=== PATIENT | female | born 1945 | race Caucasian/White ===

== ENCOUNTER 2017-10-03 09:28 | Inpatient (IN) | payer MEDICARE, OTHER ==
[~2017-10-03] VITALS: Ht 160 cm; Wt 52.6 kg
[~2017-10-03 09:28] MED LIST: AMIO200T33 PO; ASPI325T4 PO; ATOR10TA PO; IPRASOL41 NEB; MEGE40SU2 PO; RIVA10TA PO
[2017-10-03 10:51] LABS: Basophils # (auto) 0.1 uL; Basophils % (auto) 0.7 % (0.0-2.0); Eosinophils # (auto) 0.1 uL; Eosinophils % (auto) 0.7 % (0.0-7.0); Hematocrit 35.3 % (36.0-46.0); Hemoglobin 11.4 g/dL (12.2-16.2); Lymphocytes # (auto) 0.6 uL; Lymphocytes % (auto) 6.3 % (10.0-50.0); Mean Corpuscular Hemoglobin 29.5 pg (28.0-32.0); Mean Corpuscular Hgb Conc. 32.3 g/dL (32.0-36.0); Mean Corpuscular Volume 91.3 fL (80.0-100.0); Monocytes % (auto) 10.5 % (0.0-12.0); Neutrophils # (auto) 7.8 uL; Neutrophils % (auto) 81.8 % (37.0-80.0); Nucleated Red Blood Cells % 0.1 %; Platelet Count (auto) 256 10^3/uL (140-450); Red Blood Cells 3.87 10^6/uL (4.0-5.20); Red Cell Distribution Width 15.9 % (11.8-14.3); White Blood Cell 9.5 10^3/uL (4.4-10.8)
[2017-10-03 11:03] LABS: Albumin 3.5 g/dL (3.4-5.0); BUN/Creatinine Ratio 36.4; Calcium 8.7 mg/dL (8.5-10.1); Potassium 3.7 mmol/L (3.5-5.1)
[2017-10-03 11:05] LABS: Bilirubin, Total 0.4 mg/dL (0.2-1.0); Total Protein 6.6 g/dL (6.4-8.2)
[2017-10-03] MEDS ORDERED: PATIENTS OWN MEDICATION (Atorvastatin Calcium (Lipitor) 10 MG) PO SCH (14:00)
[2017-10-03] MEDS ORDERED: LORazepam 0.5 MG TAB PO PRN (14:00)
[2017-10-03] MEDS ORDERED: MORPHINE SULFATE 4 MG/ML SYR/VIAL IV PRN (14:00)
[2017-10-03] MEDS ORDERED: PROMETHAZINE HCL 25 MG/ML 1ML IV PRN (14:00)
[2017-10-03] MEDS ORDERED: HYDROcodone-ACET 5/325MG TAB PO PRN (14:00)
[2017-10-03] MEDS ORDERED: NITROGLYCERIN 0.4 MG SL TAB SL PRN (14:00)
[2017-10-03] MEDS ORDERED: DEXTROSE (50%) 50ML SYRG IV PRN (14:00)
[2017-10-03] MEDS ORDERED: TEMAZEPAM 15 MG CAP PO PRN (14:00)
[2017-10-03] MEDS ORDERED: LACTULOSE 20Gm/30ML SOLN PO PRN (14:00)
[2017-10-03] MEDS ORDERED: ASPI-498 PO (14:12)
[2017-10-03] MEDS ORDERED: PRE5T PO (16:06)
[2017-10-03] MEDS ORDERED: METH2.5T3 PO (16:06)
[2017-10-03] MEDS ORDERED: TEMA30CA PO (16:07)
[2017-10-03] MEDS ORDERED: SENN1TAB14 PO (16:07)
[2017-10-03] MEDS ORDERED: SERT-274 PO (16:07)
[2017-10-03] MEDS: ALBUTEROL SULF 2.5 MG/0.5ML(0.5%) NEB SOLN NEB SCH (16:08)
[2017-10-03] MEDS: IPRATROPIUM BROM 0.5 MG/2.5ML INH SOL NEB SCH (16:08)
[2017-10-03] MEDS: MORPHINE SULFATE 4 MG/ML SYR/VIAL IV PRN ×2 (16:25→21:47)
[2017-10-03 16:43] VITALS: BP 142/83
[2017-10-03 16:52] VITALS: BP 142/83
[2017-10-03] MEDS: InsuLIN REG 1unit/0.01ml Soln (100units/ml) SC SCH ×2 (17:00→21:45)
[2017-10-03] MEDS: SODIUM CHLORIDE 0.9% 1,000 ML IV SCH (17:50)
[2017-10-03] MEDS: ACCU-CHEK COMFORT CURVE STRIP VI SCH ×2 (17:50→21:45)
[2017-10-03] MEDS ORDERED: IPRATROPIUM ALBUTEROL NEB SCH (18:00)
[2017-10-03 20:00] VITALS: BP 106/74
[2017-10-03] MEDS: ATORVASTATIN 20 MG TAB PO SCH (21:44)
[2017-10-03] MEDS: MEGESTROL ACET 400MG/10ML ORAL SUSP PO SCH (21:44)
[2017-10-03 22:00] VITALS: BP 106/74
[2017-10-04] VITALS (7 sets, daily range): BP systolic 93–115; BP diastolic 46–74
[2017-10-04] MEDS: SODIUM CHLORIDE 0.9% 1,000 ML IV SCH (04:41)
[2017-10-04] MEDS: MORPHINE SULFATE 4 MG/ML SYR/VIAL IV PRN ×3 (04:43→16:32)
[2017-10-04] MEDS: IPRATROPIUM BROM 0.5 MG/2.5ML INH SOL NEB SCH ×4 (06:23→19:20)
[2017-10-04] MEDS: ALBUTEROL SULF 2.5 MG/0.5ML(0.5%) NEB SOLN NEB SCH ×4 (06:23→19:20)
[2017-10-04] MEDS: ACCU-CHEK COMFORT CURVE STRIP VI SCH ×4 (06:55→21:12)
[2017-10-04] MEDS: InsuLIN REG 1unit/0.01ml Soln (100units/ml) SC SCH ×4 (06:55→21:18)
[2017-10-04] MEDS: ASPirin 81 mg TAB PO SCH (09:53)
[2017-10-04] MEDS: AMIODARONE HCL 200 MG TAB PO SCH (09:53)
[2017-10-04] MEDS: MEGESTROL ACET 400MG/10ML ORAL SUSP PO SCH ×2 (09:54→21:10)
[2017-10-04] MEDS ORDERED: ENOXAPARIN SOD 40 MG/0.4 ML SYRINGE SC SCH (10:00)
[2017-10-04] MEDS ORDERED: RIVAROXABAN 10 MG TAB PO SCH (10:00)
[2017-10-04] MEDS ORDERED: PATIENTS OWN MEDICATION (Aspirin 1 TAB) PO SCH (10:00)
[2017-10-04] MEDS ORDERED: ASPirin 325 MG TAB PO SCH (10:00)
[2017-10-04] MEDS ORDERED: predniSONE 5 MG TAB PO ONE (11:45)
[2017-10-04] MEDS ORDERED: cefTRIAXone 1GM/10ml IVPUSH 10 ML IV ONE (11:45)
[2017-10-04 12:22] LABS: Urine Bacteria MANY /hpf (None Seen); Urine Blood TRACE /uL (Negative); Urine Mucus FEW (None Seen); Urine Specific Gravity 1.016 (1.001-1.035); Urine WBC 248 /hpf (0 - 5); Urine WBC Clumps PRESENT /hpf (None Seen)
[2017-10-04] MEDS ORDERED: DOCUSATE SOD 100 MG CAP PO PRN (18:00)
[2017-10-04] MEDS: ATORVASTATIN 20 MG TAB PO SCH (21:11)
[2017-10-04] MEDS ORDERED: SODIUM CHLORIDE 0.9% 500 ML IV ONE (23:15)
[2017-10-05] MEDS: IPRATROPIUM BROM 0.5 MG/2.5ML INH SOL NEB SCH ×5 (00:20→23:57)
[2017-10-05] MEDS: ALBUTEROL SULF 2.5 MG/0.5ML(0.5%) NEB SOLN NEB SCH ×5 (00:20→23:57)
[2017-10-05 05:37] VITALS: BP 90/56
[2017-10-05 05:38] LABS: Basophils # (auto) 0.1 uL; Basophils % (auto) 0.6 % (0.0-2.0); Eosinophils # (auto) 0.1 uL; Hematocrit 33.3 % (36.0-46.0); Hemoglobin 10.8 g/dL (12.2-16.2); Lymphocytes # (auto) 0.9 uL; Lymphocytes % (auto) 9.2 % (10.0-50.0); Mean Corpuscular Hemoglobin 29.7 pg (28.0-32.0); Mean Corpuscular Hgb Conc. 32.4 g/dL (32.0-36.0); Mean Corpuscular Volume 91.5 fL (80.0-100.0); Monocytes # (auto) 1.4 uL; Monocytes % (auto) 15.2 % (0.0-12.0); Platelet Count (auto) 230 10^3/uL (140-450); Red Blood Cells 3.64 10^6/uL (4.0-5.20); Red Cell Distribution Width 15.9 % (11.8-14.3); White Blood Cell 9.5 10^3/uL (4.4-10.8)
[2017-10-05 05:57] LABS: INR 1.09 (0.9-1.15); Partial Thromboplastin Time 33.8 sec (22.64-33.71); Prothrombin Time 11.9 sec (9.37-12.3)
[2017-10-05 06:02] LABS: Calcium 8.5 mg/dL (8.5-10.1); Potassium 3.3 mmol/L (3.5-5.1)
[2017-10-05 06:04] LABS: BUN/Creatinine Ratio 39.4
[2017-10-05] MEDS: ACETAMINOPHEN 500 MG TAB PO PRN ×2 (06:31→20:05)
[2017-10-05] MEDS: ACCU-CHEK COMFORT CURVE STRIP VI SCH ×4 (06:31→21:36)
[2017-10-05] MEDS: InsuLIN REG 1unit/0.01ml Soln (100units/ml) SC SCH ×4 (06:31→21:36)
[2017-10-05 08:47] VITALS: BP 87/47
[2017-10-05] MEDS: cefTRIAXone 1GM/10ml IVPUSH 10 ML IV SCH (09:10)
[2017-10-05] MEDS: predniSONE 5 MG TAB PO SCH (09:15)
[2017-10-05] MEDS: AMIODARONE HCL 200 MG TAB PO SCH (09:16)
[2017-10-05] MEDS: ASPirin 81 mg TAB PO SCH (09:16)
[2017-10-05] MEDS: MEGESTROL ACET 400MG/10ML ORAL SUSP PO SCH ×3 (09:16→21:25)
[2017-10-05] MEDS: traMADol HCL 50 MG TAB PO PRN ×3 (10:59→21:26)
[2017-10-05] MEDS ORDERED: SODIUM CHLORIDE 0.9% 500 ML IV ONE (11:45)
[2017-10-05 13:00] VITALS: BP 87/56
[2017-10-05 17:14] VITALS: BP 94/54
[2017-10-05] MEDS: ATORVASTATIN 20 MG TAB PO SCH (21:25)
[2017-10-05 22:00] VITALS: BP 110/59
[2017-10-06 05:00] VITALS: BP 103/57
[2017-10-06] MEDS: traMADol HCL 50 MG TAB PO PRN ×3 (06:15→23:25)
[2017-10-06] MEDS: InsuLIN REG 1unit/0.01ml Soln (100units/ml) SC SCH ×4 (07:00→22:23)
[2017-10-06] MEDS: ACCU-CHEK COMFORT CURVE STRIP VI SCH ×4 (07:22→21:58)
[2017-10-06] MEDS: IPRATROPIUM BROM 0.5 MG/2.5ML INH SOL NEB SCH ×3 (07:31→18:12)
[2017-10-06] MEDS: ALBUTEROL SULF 2.5 MG/0.5ML(0.5%) NEB SOLN NEB SCH ×3 (07:31→18:12)
[2017-10-06 08:00] VITALS: BP 106/62
[2017-10-06] MEDS ORDERED: ADENOSINE 45 MG in GIVE UN-DILUTED 0 ML IV ONE (08:30)
[2017-10-06] MEDS: cefTRIAXone 1GM/10ml IVPUSH 10 ML IV SCH (09:34)
[2017-10-06] MEDS: AMIODARONE HCL 200 MG TAB PO SCH (09:35)
[2017-10-06] MEDS: predniSONE 5 MG TAB PO SCH (09:35)
[2017-10-06] MEDS: MEGESTROL ACET 400MG/10ML ORAL SUSP PO SCH ×2 (09:36→21:58)
[2017-10-06] MEDS: ASPirin 81 mg TAB PO SCH (09:36)
[2017-10-06 12:00] VITALS: BP 100/66
[2017-10-06 20:00] VITALS: BP 121/53
[2017-10-06] MEDS: ATORVASTATIN 20 MG TAB PO SCH (21:58)
[2017-10-06 21:59] VITALS: BP 100/66
[2017-10-06 22:00] VITALS: BP 141/82
[2017-10-07] MEDS: IPRATROPIUM BROM 0.5 MG/2.5ML INH SOL NEB SCH ×3 (00:40→13:12)
[2017-10-07] MEDS: ALBUTEROL SULF 2.5 MG/0.5ML(0.5%) NEB SOLN NEB SCH ×3 (00:40→13:12)
[2017-10-07] MEDS: traMADol HCL 50 MG TAB PO PRN (04:51)
[2017-10-07 04:53] VITALS: BP 110/62
[2017-10-07] MEDS: ACCU-CHEK COMFORT CURVE STRIP VI SCH ×2 (06:32→11:30)
[2017-10-07] MEDS: InsuLIN REG 1unit/0.01ml Soln (100units/ml) SC SCH ×2 (06:46→11:30)
[2017-10-07 08:00] VITALS: BP 106/60
[2017-10-07 09:30] VITALS: BP 106/60
[2017-10-07 10:02] VITALS: BP 130/71
[2017-10-07] MEDS: predniSONE 5 MG TAB PO SCH (11:55)
[2017-10-07] MEDS: MEGESTROL ACET 400MG/10ML ORAL SUSP PO SCH (11:56)
[2017-10-07] MEDS: ASPirin 81 mg TAB PO SCH (11:56)
[2017-10-07] MEDS: AMIODARONE HCL 200 MG TAB PO SCH (11:56)
[2017-10-07] MEDS: cefTRIAXone 1GM/10ml IVPUSH 10 ML IV SCH (11:56)
[2017-10-07 13:11] VITALS: BP 111/50
== END 2017-10-07 15:30 | DRG 534 ==
LOC: ER 09:28 → EDBD 09:28 → TELE 09:29 → CENTRAL 15:52
PROVIDERS: ADMIT Internal Medicine; ATTEND Internal Medicine
DX: S72.491A Other fracture of lower end of right femur, initial encounter for closed fracture (principal); J96.10 Chronic respiratory failure, unspecified whether with hypoxia or hypercapnia; I48.0 Paroxysmal atrial fibrillation; J44.9 Chronic obstructive pulmonary disease, unspecified; E11.9 Type 2 diabetes mellitus without complications; I71.4 Abdominal aortic aneurysm, without rupture; F03.90 Unspecified dementia, unspecified severity, without behavioral disturbance, psychotic disturbance, mood disturbance, and anxiety; F32.9 Major depressive disorder, single episode, unspecified; I11.9 Hypertensive heart disease without heart failure; E78.5 Hyperlipidemia, unspecified; W18.39XA Other fall on same level, initial encounter; M19.90 Unspecified osteoarthritis, unspecified site; R26.2 Difficulty in walking, not elsewhere classified; M06.9 Rheumatoid arthritis, unspecified; Z82.49 Family history of ischemic heart disease and other diseases of the circulatory system; Z74.01 Bed confinement status; Z83.3 Family history of diabetes mellitus; Z86.73 Personal history of transient ischemic attack (TIA), and cerebral infarction without residual deficits; Z87.891 Personal history of nicotine dependence; Z90.49 Acquired absence of other specified parts of digestive tract; Z90.710 Acquired absence of both cervix and uterus; Z91.040 Latex allergy status; Y93.89 Activity, other specified; Y92.89 Other specified places as the place of occurrence of the external cause; Y99.8 Other external cause status
CPT/HCPCS: 36415; 71045; 73502; 73562; 73700; 78452; 80048; 80053; 81001; 82962; 83036; 85025; 85610; 85730; 93005; 93017; 93306; 94640; 94761; J0153; J1815